=== PATIENT | female | born 1965 | race Caucasian/White ===

== ENCOUNTER 2017-08-15 06:46 | Day surgery (SDC) | payer OTHER ==
[2017-08-15] MEDS ORDERED: LR 1,000 ML IV ONE (06:54)
[2017-08-15] MEDS ORDERED: LIDOCAINE 1% 2 ML INJ ID PRN (06:54)
[2017-08-15 07:41] VITALS: RESP 16
--- NOTE | 2017-08-15 08:12 | PDGENHP ---
History & Physical Chief Complaint: Screening colonoscopy. Mother with polyps < 60 years old. Relevant Physical Exam: GEN: NAD. Cardiac: RRR. Lungs: CTA B. Abd: Soft, nt, nd
[2017-08-15] MEDS ORDERED: PROPOFOL/EMULSION 500 MG/50 ML BOTTLE IV ONE (08:22)
[2017-08-15] MEDS ORDERED: NALOXONE HCL 0.4 MG/ML INJ IVP PRN (08:30)
[2017-08-15] MEDS ORDERED: LR 500 ML IV PRN (08:30)
[2017-08-15] MEDS ORDERED: ONDANSETRON 4 MG/2 ML VIAL IVP PRN (08:30)
--- NOTE | 2017-08-15 08:30 | PDANEPAE ---
ANE History of Present Illness patient presents for screening colonoscopy ANE Past Medical History - Cardiovascular History Hx Hypertension: Yes Hx Arrhythmias: No Hx Chest Pain: No Hx Coronary Artery / Peripheral Vascular Disease: No Hx CHF / Valvular Disease: No Hx Palpitations: No - Pulmonary History Hx COPD: No Hx Asthma/Reactive Airway Disease: No Hx Recent Upper Respiratory Infection: No Hx Oxygen in Use at Home: No Hx Sleep Apnea: No Sleep Apnea Screening Result - Last Documented: Positive - Neurologic History Hx Cerebrovascular Accident: No Hx Seizures: No Hx Dementia: No - Endocrine History Hx Diabetes: No - Renal History Hx Renal Disorders: No - Liver History Hx Hepatic Disorders: No - Neurological & Psychiatric Hx Hx Neurological and Psychiatric Disorders: No - Cancer History Hx Cancer: No - Congenital Disorder History Hx Congenital Disorders: No - GI History Hx Gastrointestinal Disorders: No - Other Health History Other Health History: none - Chronic Pain History Chronic Pain: No - Surgical History Prior Surgeries: 2016 right shoulder ACL decompression,. 2010 hysterectomy ANE Review of Systems Review of Systems: - Exercise capacity METS (RN): 4 METS ANE Patient History - Allergies Allergies/Adverse Reactions: azithromycin [From Zithromax] Allergy (Verified 08/10/17 11:02) Itching - Home Medications Home medications: home medication list seen and reviewed Home Medications: Amlodipine Besylate 5 DAILY AT 6AM 08/10/17 [Last Taken 08/14/17 09:00] Gabapentin 300 TID 08/10/17 [Last Taken 08/14/17] Naprosyn 500 HS 08/10/17 [Last Taken 08/13/17] [place] 7.5-325 Tablet PRN PRN 08/10/17 [Last Taken 08/13/17] Paxil 20mg (*) 20 DAILY AT 6AM 08/10/17 [Last Taken 08/14/17 09:00] TOPIRAMATE 150 DAILY AT 6AM 08/10/17 [Last Taken 08/11/17] traMADol 50 PRN PRN 08/10/17 [Last Taken 2 Days Ago ~08/13/17] - NPO status NPO Status: no food or drink >8 hours NPO Since - Liquids (Date): 08/14/17 NPO Since - Liquids (Time): 00:00 NPO Since - Solids (Date): 08/13/17 NPO Since - Solids (Time): 11:30 - Anes Hx Anes Hx: no prior problems - Smoking Hx Smoking Status: Never smoked - Family Anes Hx Family Hx Anesthesia Complications: none ANE Labs/Vital Signs - Vital Signs Blood Pressure: 126/83 Heart Rate: 69 Respiratory Rate: 16 O2 Sat (%): 96 Height: 175.26 cm Weight: 134.717 kg ANE Physical Exam - Airway Neck exam: FROM Mallampati Score: Class 2 Mouth exam: normal dental/mouth exam - Pulmonary Pulmonary: no respiratory distress - Cardiovascular Cardiovascular: regular rate and rhythym - ASA Status ASA Status: II ANE Anesthesia Plan Anesthesia Plan: GA with mask Total IV Anesthesia: Yes
--- NOTE | 2017-08-15 08:51 | GIREPORT ---
Formerly [facility] Surgical Services - Endoscopy Department Patient Name: Gabrielle Blackmon Procedure Date: 08/15/2017 7:37 AM Patient Type: Outpatient Attending MD/ ER Physician: Vega Hassan MD Procedure: Colonoscopy Indications: Colon cancer screening in patient at increased risk: Family history of 1st-degree relative with colon polyps before age 60 years Providers: Vega Hassan MD Medicines: Monitored Anesthesia Care Complications: No immediate complications. Description of Procedure: After obtaining informed consent, the scope was passed under direct vis ion. Throughout the procedure, the patient's blood pressure, pulse, and oxyg en saturations were monitored continuously. The Colonoscope with irrigatio n channel was introduced through the anus and advanced to the terminal il eum, with identification of the appendiceal orifice and IC valve. The colono scopy was performed without difficulty. The patient tolerated the procedure w ell. The quality of the bowel preparation was good. Findings: The perianal and digital rectal examinations were normal. The terminal ileum appeared normal. A 10 mm polyp was found in the transverse colon. The polyp was sessile. The polyp was removed with a hot snare. Resection and retrieval were comple te. Verification of patient identification for the specimen was done by the physician and nurse using the patient's name and date. Estimated blood loss was minimal. Multiple medium-mouthed diverticula were found in the sigmoid colon and descending colon. The retroflexed view of the distal rectum and anal verge was normal and showed no anal or rectal abnormalities. Estimated Blood Loss: Estimated blood loss: none. Estimated blood loss: none. Post Op Diagnosis: - The examined portion of the ileum was normal. - One 8 mm polyp in the transverse colon, removed with a hot snare. Res ected and retrieved. - Diverticulosis in the sigmoid colon and in the descending colon. - The distal rectum and anal verge are normal on retroflexion view. Recommendation: - Discharge patient to home (with escort). - High fiber diet. - Continue present medications. - Repeat colonoscopy in 3 - 5 years for surveillance based on pathology results. If the polyp is found to be adenomatous, a repeat colonoscopy in 3 years is recommended. Otherwise a repeat colonscopy in 5 years is recommended (family history). - Await pathology results. Results are available in 10 days. - Thank you for allowing me to participate in the care of your patient. Attending Participation: I personally performed the entire procedure. Vega Hassan MD Vega Hassan MD 08/15/2017 8:50:56 AM This report has been signed electronicallyDaalyssa Hassan MD Number of Addenda: 0 Note Initiated On: 08/15/2017 7:37 AM Total Procedure Duration Time 0 hours 12 minutes 45 seconds [email or web address]
--- NOTE | 2017-08-15 09:06 | POSTANESTH ---
Post Anesthetic Evaluation Cardiovascular Status: Normal, Stable Respiratory Status: Normal, Stable Level of Consciousness/Mental Status: Mildly Sleepy, Arousable Pain Control: Adequate, Prn Tx Ordered Nausea/Vomiting Control: Adequate, Prn Tx Ordered Complications Possibly Related to Anesthesia: None Noted
[2017-08-15 09:43] VITALS: PULSE 57; TEMP 207.9; O2SAT 99
[2017-08-15 09:44] VITALS: BP 151/90
== END 2017-08-15 09:51 | disposition home or self-care (01) ==
LOC: FSGY 06:46 → EEVIPCON 07:30 → FSGY 09:51
PROVIDERS: ATTEND Internal Medicine Gastroenterology
PROC: 0DBL8ZX Excision of Transverse Colon, Via Natural or Artificial Opening Endoscopic, Diagnostic (ICD-10-PCS; principal; 2017-08-15 08:15)
DX: Z12.11 Encounter for screening for malignant neoplasm of colon (principal); D12.3 Benign neoplasm of transverse colon
CPT/HCPCS: J2704

== ENCOUNTER 2017-11-21 22:35 | Emergency (ER) | payer OTHER ==
[2017-11-21 22:51] VITALS: BP 117/95; PULSE 62; RESP 16; TEMP 98.1; O2SAT 95
[2017-11-21] MEDS ORDERED: IBUPROFEN 600 MG TAB PO ONE (23:03)
--- NOTE | 2017-11-21 23:36 | EDPHY ---
H & P Time Seen by Provider: 11/21/17 22:47 HPI/ROS: CHIEF COMPLAINT: Chemical burn hands HISTORY OF PRESENT ILLNESS: 52-year-old female presents to the emergency department with chemical cox to both hands. The patient was at work and had concentrated hydrogen peroxide on her hands. They immediately began to burn. She washed her hands with soap and water. She is still complaining of some mild burning sensation. She believes her tetanus shot is current. Denies any other trauma or injury. Denies any respiratory complaints. ROS: Denies numbness or tingling in her fingers Past Medical/Surgical History: Chronic back pain, hypertension, migraine headaches Social History: Has a life partner and lives in [place] Smoking Status: Never smoked Physical Exam: On examination the patient has white patches noted to the palm of both her left and right hand. No circumferential cox noted. No vesicles. No other break in her skin. Normal sensation to light touch with normal 2 point discrimination. No signs of infection. Full range of motion of her fingers. Constitutional: Initial Vital Signs Temperature (C) 36.7 C 11/21/17 22:35 Heart Rate 62 11/21/17 22:35 Respiratory Rate 16 11/21/17 22:35 Blood Pressure 117/95 H 11/21/17 22:35 O2 Sat (%) 95 11/21/17 22:35 O2 Delivery Mode Room Air Allergies/Adverse Reactions: azithromycin [From Zithromax] Allergy (Verified 11/21/17 22:51) Itching Home Medications: Medication Instructions Recorded Amlodipine Besylate 5 DAILY AT 6AM 08/10/17 Gabapentin 300 TID 08/10/17 Naprosyn 500 HS 08/10/17 [place] 7.5-325 Tablet PRN PRN 08/10/17 Paxil 20mg (*) 20 DAILY AT 6AM 08/10/17 TOPIRAMATE 150 DAILY AT 6AM 08/10/17 traMADol 50 PRN PRN 08/10/17 Amlodipine Besylate [Norvasc] 10 mg PO 11/21/17 Methocarbamol [Robaxin-750] 750 mg PO 11/21/17 SUMAtriptan [Sumatriptan] 5 mg NS 11/21/17 Topiramate [Topamax] 150 mg PO 11/21/17 MDM/Departure - MDM Medications Given: Discontinued Medications Ibuprofen (Motrin) 600 mg PO EDNOW ONE Stop: 11/21/17 23:04 Last Admin: 11/21/17 23:05 Dose: 600 mg ED Course/Re-evaluation: I spoke with poison Control, nurse Quyen, case #[id number]. They recommended supportive care in washing her hand under running water for 15-20 minutes. Patient was given wound care precautions. - Depart Disposition: Home, Routine, Self-Care Clinical Impression: Chemical burn Condition: Good Instructions: Chemical Skin Burn (ED) Additional Instructions: Wash hands under water 15- 20 min. Ibuprofen 600 mg every 8 hr as needed for pain. Return to the emergency department if you notice any signs or symptoms of infection or any other concerns. Poison Control case #[id number] Referrals: APRYL PARIS MD [Other] - As per Instructions
== END 2017-11-21 23:30 | disposition home or self-care (01) ==
DX: T65.891A Toxic effect of other specified substances, accidental (unintentional), initial encounter (principal); T23.452A Corrosion of unspecified degree of left palm, initial encounter; T23.451A Corrosion of unspecified degree of right palm, initial encounter; I10 Essential (primary) hypertension; X19.XXXA Contact with other heat and hot substances, initial encounter; Y99.0 Civilian activity done for income or pay; Y93.89 Activity, other specified